=== PATIENT | male | born 1965 | race African-American/Black ===

== ENCOUNTER 2018-10-23 11:44 | Day surgery (SDC) | payer OTHER ==
[2018-10-23] MEDS ORDERED: PROPOFOL 200 MG INJ (14:45)
[2018-10-23] MEDS ORDERED: PROPOFOL 20 ML (14:47)
[2018-10-23] MEDS ORDERED: FENTAnyl 50 MCG/ML VIAL (14:48)
== END 2018-10-23 15:56 | disposition home or self-care (01) ==
LOC: GIL 11:44
DX: Z12.11 Encounter for screening for malignant neoplasm of colon (principal); D12.5 Benign neoplasm of sigmoid colon; K64.8 Other hemorrhoids; D12.2 Benign neoplasm of ascending colon; D12.0 Benign neoplasm of cecum; I10 Essential (primary) hypertension
CPT/HCPCS: 45380; 88305